=== PATIENT | male | born 1955 | race Caucasian/White ===

== ENCOUNTER 2022-01-16 07:20 | Inpatient (IN) ==
[2022-01-16] MEDS ORDERED: IOPAMIDOL 100 ML BOTTLE IV ONE (07:21)
[2022-01-16 07:52] LABS: POC Calcium, Ionized 1.14 (1.16-1.32); POC Creatinine 0.8 (0.6-1.2); POC Potassium 3.4 (3.3-5.1)
[2022-01-16] MEDS ORDERED: 0.9 % SODIUM CHLORIDE 1,000 ML IV ONE (08:02)
[2022-01-16 08:31] LABS: Basophils # (Auto) 0.07 K/mcL (0.00-0.30); Basophils % (Auto) 0.4 % (0.0-2.0); Eosinophils # (Auto) 0 K/mcL (0.00-0.70); Eosinophils % (Auto) 0 % (0.0-7.0); Hematocrit 50.2 % (40.1-51.0); Hemoglobin 18.1 g/dL (13.7-17.5); Lymphocytes # (Auto) 1.67 K/mcL (1.50-4.80); Mean Cell Volume 94.2 fL (80.0-100.0); Mean Corpuscular HGB Conc 36.1 g/dL (31.0-36.0); Mean Platelet Volume 9.7 fL (7.4-10.4); Monocytes # (Auto) 2.03 K/mcL (0.10-0.90); Monocytes % (Auto) 10.9 % (1.0-12.0); Neutrophils % (Auto) 78.5 % (38.0-78.0); Platelet Count 197 K/mcL (140-440); RBC 5.33 M/mcL (4.63-6.08); Red Cell Distribution Width 13.4 % (11.5-14.5); WBC 18.6 K/mcL (4.5-11.0)
[2022-01-16 08:47] LABS: ALT/SGPT 69 U/L (<40); AST/SGOT 109 U/L (<40); Albumin 3.8 gm/dL (3.2-5.2); Albumin/Globulin Ratio 1.3 (1.0-2.3); Alkaline Phosphatase 167 U/L (39-117); Blood Urea Nitrogen 7 mg/dL (8-23); Calcium 8.9 mg/dL (8.6-10.4); Carbon Dioxide 21 mmol/L (22-30); Chloride 98 mmol/L (96-108); Glomerular Filtration Rate 87; Glucose 150 mg/dL (70-105)
--- NOTE | 2022-01-16 09:08 | XRay Report ---
INDICATION: Abdominal pain TECHNIQUE: PA and lateral upright chest x-ray COMPARISON: Previous chest x-ray dated 09/28/2021 FINDINGS: Lungs: Mild parenchymal density in both lower lobes. Scan demonstrates bilateral lower lobe atelectasis. Heart, vascular: No significant cardiomegaly. Pulmonary vascularity is normal. No pulmonary edema or pulmonary congestion Mediastinum, francie: No mediastinal widening. No hilar mass Pleura:No pleural fluid. No pleural-based mass or calcification Thoracic spine, ribs: No thoracic compression fracture. Ribs are negative. No fracture. No lytic lesion IMPRESSION: 1. Bilateral lower lobe pulmonary parenchymal density consistent with atelectasis 2. Otherwise negative chest x-ray. Interpreted and Authenticated by: Milton Bourne 01/16/22
--- NOTE | 2022-01-16 09:27 | Cat Scan Report ---
INDICATION: Abdominal pain COMPARISON: None. TECHNIQUE: Axial images were obtained through the abdomen and pelvis. Sagittally and coronally reformatted images. 80 mL Isovue 370 injected intravenously. Oral contrast material was not administered FINDINGS: Lung bases:Lung bases are abnormal. There are linear densities in both lower lobes consistent with atelectasis. No parenchymal mass. There is no pleural fluid or pericardial fluid. Liver:No focal intrahepatic mass. No focal abnormality. No intrahepatic abscess. Liver contour is smooth Gallbladder, bilary:Gallbladder is mildly enlarged. There is a 2.1 cm gallstone. There are also densities in the inferior gallbladder consistent with smaller stones. There is gallbladder wall thickening and extensive pericholecystic fluid. Appearance is consistent with cholecystitis. There are probably areas of gallbladder wall defect is since consistent with gangrenous cholecystitis. No walled off fluid. No evidence for abscess. Pericholecystic inflammatory change extends inferiorly to the hepatic flexure of the colon with pericolonic inflammatory change. There are colonic diverticula. Findings are most consistent with cholecystitis and secondary pericolonic inflammatory change rather than primary colonic diverticulitis and involvement of the gallbladder. No intrahepatic bile duct dilatation. Common bile duct is not well demonstrated. Spleen:No splenomegaly. Normal enhancement of splenic and portal veins. Pancreas:No pancreatic mass. No peripancreatic abnormality Adrenal glands:Negative Kidneys,ureters,bladder:No solid renal mass. No hydronephrosis. No obstructing or nonobstructing calculi. No hydroureter. No ureteral calculus. No bladder stone. No detectable bladder mass. Gastrointestinal:No detectable colonic mass. Prominent diverticulosis without diverticulitis. There are diverticula in the hepatic flexure of the colon. There is extensive pericolonic inflammatory change but this is probably secondary to adjacent cholecystitis rather than diverticulitis. There is no discrete diverticular abscess Negative small bowel. No mechanical small bowel obstruction. No bowel wall thickening. No focal abnormality. Negative stomach and duodenum. No focal abnormality. Appendix: The appendix is negative Vascular:Negative abdominal aorta. Superior mesenteric artery and celiac trunk are normal. Normal opacification of the inferior mesenteric artery. Incidental note is made of a retroaortic left renal vein Lymphatic:No retroperitoneal or mesenteric adenopathy Mesentery, peritoneum: Small amount of free fluid within the pelvis. Reproductive:No significant prostatic enlargement Musculoskeletal:Degenerative disc disease at L3-4 and L4-5. No lumbar compression fractures. Sacrum and pelvis are negative. Hips are negative No abdominal wall or inguinal hernia IMPRESSION: 1. Cholelithiasis 2. Extensive pericholecystic fluid consistent with cholecystitis. Gallbladder wall dehiscence and gangrenous cholecystitis are possible. 3. Prominent inflammatory change around the hepatic flexure of the colon. There is diverticulosis but the pericolonic inflammatory changes considered secondary to cholecystitis rather than primary diverticulitis 4. Mild free pelvic fluid. No pelvic abscess 5. Degenerative disc disease 6. Bilateral lower lobe atelectasis The exam was performed using radiation dose optimization techniques including, but not limited to, automated exposure control, adjustment of the mA and/or kV according to patient size and use of iterative reconstruction technique. Interpreted and Authenticated by: Milton Bourne 01/16/22
--- NOTE | 2022-01-16 09:29 | Emergency Department Note ---
Abdominal Pain HPI General Chief Complaint: Abdominal Pain Stated Complaint: abdominal pain Time Seen by Provider: 01/16/22 07:54 Source: patient Mode of arrival: ambulatory Limitations: no limitations History of Present Illness HPI Narrative: 66-year-old male with past medical history of psoriasis, asthma, alcohol abuse presents with dental intermittent severe 8/10 abdominal pain since yesterday associated with nausea. Patient has no headache, dizziness, chest pain, shortness of breath, vomiting/constipation/diarrhea, fever or chills. Related Data Home Medications Medication Instructions Recorded Confirmed multivitamin 1 tab PO QDAY 03/07/15 01/16/22 naproxen sodium 220 mg tablet 220 mg PO QDAY PRN Pain 08/14/21 01/16/22 (Aleve) Allergies Allergy/AdvReac Type Severity Reaction Status Date / Time No Known Drug Allergies Allergy Verified 01/16/22 07:31 Review of Systems ROS ROS Narrative: Narrative: All systems ED: reviewed and negative except as stated. Constitutional: Reports fever; Denies weakness Cardiovascular: Reports as per HPI; Denies chest pain Respiratory: Reports as per HPI; Denies wheezes Gastrointestinal: Reports as per HPI, abdominal pain and nausea; Denies vomiting or diarrhea PFSH Narrative Patient History Narrative: Narrative: Medical/Surgical/Family History All Active Problems (Updated 01/16/22 @ 11:06 by Galen Miller MD) Diverticulosis (Acute) Acute gangrenous cholecystitis (Acute) Encounter for screening colonoscopy for [id number] patient (Acute) Rib pain on right side (Chronic) Hyperlipidemia (Chronic) Abnormal bilirubin test (Chronic) Paresthesia of left foot (Chronic) Essential hypertension (Chronic) Alcohol abuse (Chronic) Closed fracture of right wrist (Chronic) Tinea corporis (Chronic) Sciatica (Chronic) Psoriasis (Chronic) Asthma (Chronic) Medical History Abnormal bilirubin test Alcohol abuse Asthma Closed fracture of right wrist Essential hypertension Hyperlipidemia Paresthesia of left foot Psoriasis Rib pain on right side Sciatica Tinea corporis Family History Mother , at 80y Essential hypertension Father , at 82y Acute myocardial infarction Social History Smoking Status: Former smoker Alcohol Intake Frequency: 2+ drinks per day Substance Use: does not use Exam Narrative Narrative: Narrative: General Limitations: no limitations General appearance: Present alert and in no apparent distress Eye Eye: Present normal appearance Chest Chest: Present normal inspection Respiratory Respiratory: Present normal lung sounds bilaterally Cardiovascular Cardiovascular: Present regular rate, normal rhythm and normal heart sounds Adbominal Abdominal: Present tenderness, guarding, rebound and other (+ tenderness RUQ, Mid abdomen with guarding and rebound tenderness) Extremities Extremities: Absent pedal edema, cyanosis or clubbing Neurological Neurological: Present alert and oriented X3 Psychiatric Psychiatric: Present normal affect and normal mood Course Course Course Narrative: Labs including CBC, CMP, troponin, UA were ordered. CT scan of abdomen with contrast was ordered. Follow-up: Patient has a high WBC count 18.6 with left shift, he has increased LFTs total bilirubin 2, ALT 109, AST 69, alkaline phosphatase 117. His sodium is 132. Follow-up: CT scan of abdomen with contrast is consistent with gangrenous cholecystitis. Discussed the findings with surgical consult Dr. Miller. We will admit the patient to the hospital here and Dr. Miller will see him in the hospital jorge. We will start patient on the Zosyn IV antibiotic. Vital Signs Vital signs: Vital Signs Temperature 100.0 F H 01/16/22 07:28 Pulse Rate 112 H 01/16/22 07:28 Respiratory Rate 18 01/16/22 07:28 Blood Pressure 148/88 01/16/22 07:28 Pulse Oximetry (%) 94 01/16/22 07:28 Oxygen Delivery Method 01/16/22 07:28 Temperature 100.2 F H 01/16/22 19:42 Pulse Rate 99 H 01/16/22 19:14 Respiratory Rate 20 01/16/22 19:14 Blood Pressure 146/91 01/16/22 19:14 Pulse Oximetry (%) 90 01/16/22 19:14 Oxygen Delivery Method 01/16/22 19:14 [facility] Narrative Medical decision making narrative: Narrative: Lab Data Result diagrams: 01/16/22 07:50 01/16/22 07:49 Labs: Lab Results 01/16/22 01/16/22 01/16/22 Range/Units 07:48 07:49 07:50 WBC 18.6 H (4.5-11.0) K/mcL RBC 5.33 (4.63-6.08) M/mcL Hgb 18.1 H (13.7-17.5) g/dL Hct 50.2 (40.1-51.0) % POC Hct 55.0 (41-55) MCV 94.2 (80.0-100.0) fL MCH 34.0 (26.0-34.0) pg MCHC 36.1 H (31.0-36.0) g/dL RDW 13.4 (11.5-14.5) % Plt Count 197 (140-440) K/mcL MPV 9.7 (7.4-10.4) fL Immature Gran % (Auto) 1.2 H (0.0-0.5) % Neut % (Auto) 78.5 H (38.0-78.0) % Lymph % (Auto) 9.0 L (15.5-49.0) % Dougherty % (Auto) 10.9 (1.0-12.0) % Eos % (Auto) 0 (0.0-7.0) % Baso % (Auto) 0.4 (0.0-2.0) % Lymph # (Auto) 1.67 (1.50-4.80) K/mcL Dougherty # (Auto) 2.03 H (0.10-0.90) K/mcL Eos # (Auto) 0 (0.00-0.70) K/mcL Baso # (Auto) 0.07 (0.00-0.30) K/mcL Immature Gran # 0.22 H (0.00-0.05) K/mcl Absolute Neutrophils 14.84 H (1.80-8.00) K/mcL POC VBG pH (7.32-7.42) POC VBG pCO2 at Temp (41-51) POC VBG pO2 (25-40) POC VBG HCO3 (24-28) POC VBG Total CO2 (25-29) POC Venous O2 Sat (40-70) POC VBG Base Excess (-2-2) POC Sodium 134 (133-145) Sodium 132 L (133-145) mmol/L POC Potassium 3.4 (3.3-5.1) Potassium 3.3 (3.3-5.1) mmol/L POC Chloride 98 (96-108) Chloride 98 (96-108) mmol/L Carbon Dioxide 21 L (22-30) mmol/L POC Total CO2 21.0 L (22-30) Anion Gap 13.0 (8.0-16.0) POC BUN 10 (6-20) BUN 7 L (8-23) mg/dL Creatinine 0.9 (0.7-1.2) mg/dL POC Creatinine 0.8 (0.6-1.2) GFR Calculation 87 Glucose 150 H (70-105) mg/dL POC Glucose 154 H (70-105) POC Venous Lactate (0.5-2) Calcium 8.9 (8.6-10.4) mg/dL POC WB Ioniz Calcium 1.14 L (1.16-1.32) Total Bilirubin 2.0 H (0.1-1.0) mg/dL AST 109 H (<40) U/L ALT 69 H (<40) U/L Alkaline Phosphatase 167 H (39-117) U/L Total Protein 6.8 (5.9-8.4) gm/dL Albumin 3.8 (3.2-5.2) gm/dL Globulin 3.0 (2.2-3.7) gm/dL Albumin/Globulin Ratio 1.3 (1.0-2.3) Urine Color Urine Appearance (Clear) Urine pH (5.0-9.0) Ur Specific [place] (1.000-1.035) Urine Protein (Negative) mg/dL Urine Glucose (UA) (Negative) mg/dL Urine Ketones (Negative) mg/dL Urine Occult Blood (Negative) mg/dL Urine Nitrate (Negative) Urine Bilirubin (Negative) mg/dL Urine Urobilinogen mg/dL Ur Leukocyte Esterase (Negative) /uL Urine RBC (0-3) /hpf Urine WBC (0-4) /hpf Ur Squamous Epith Cells (0-4) /hpf Urine Bacteria (0) /hpf Urine Mucus (None) /hpf Ur Culture Indicated? 01/16/22 01/16/22 Range/Units 08:55 09:23 WBC (4.5-11.0) K/mcL RBC (4.63-6.08) M/mcL Hgb (13.7-17.5) g/dL Hct (40.1-51.0) % POC Hct (41-55) MCV (80.0-100.0) fL MCH (26.0-34.0) pg MCHC (31.0-36.0) g/dL RDW (11.5-14.5) % Plt Count (140-440) K/mcL MPV (7.4-10.4) fL Immature Gran % (Auto) (0.0-0.5) % Neut % (Auto) (38.0-78.0) % Lymph % (Auto) (15.5-49.0) % Dougherty % (Auto) (1.0-12.0) % Eos % (Auto) (0.0-7.0) % Baso % (Auto) (0.0-2.0) % Lymph # (Auto) (1.50-4.80) K/mcL Dougherty # (Auto) (0.10-0.90) K/mcL Eos # (Auto) (0.00-0.70) K/mcL Baso # (Auto) (0.00-0.30) K/mcL Immature Gran # (0.00-0.05) K/mcl Absolute Neutrophils (1.80-8.00) K/mcL POC VBG pH 7.52 H (7.32-7.42) POC VBG pCO2 at Temp 28.0 L (41-51) POC VBG pO2 30 (25-40) POC VBG HCO3 23.1 L (24-28) POC VBG Total CO2 24.0 L (25-29) POC Venous O2 Sat 66.0 (40-70) POC VBG Base Excess 0 (-2-2) POC Sodium (133-145) Sodium (133-145) mmol/L POC Potassium (3.3-5.1) Potassium (3.3-5.1) mmol/L POC Chloride (96-108) Chloride (96-108) mmol/L Carbon Dioxide (22-30) mmol/L POC Total CO2 (22-30) Anion Gap (8.0-16.0) POC BUN (6-20) BUN (8-23) mg/dL Creatinine (0.7-1.2) mg/dL POC Creatinine (0.6-1.2) GFR Calculation Glucose (70-105) mg/dL POC Glucose (70-105) POC Venous Lactate 2.6 H (0.5-2) Calcium (8.6-10.4) mg/dL POC WB Ioniz Calcium (1.16-1.32) Total Bilirubin (0.1-1.0) mg/dL AST (<40) U/L ALT (<40) U/L Alkaline Phosphatase (39-117) U/L Total Protein (5.9-8.4) gm/dL Albumin (3.2-5.2) gm/dL Globulin (2.2-3.7) gm/dL Albumin/Globulin Ratio (1.0-2.3) Urine Color Cristina Urine Appearance Clear (Clear) Urine pH 6.0 (5.0-9.0) Ur Specific [place] 1.029 (1.000-1.035) Urine Protein 30 A (Negative) mg/dL Urine Glucose (UA) Negative (Negative) mg/dL Urine Ketones Negative (Negative) mg/dL Urine Occult Blood 0.03 (Negative) mg/dL Urine Nitrate Negative (Negative) Urine Bilirubin Negative (Negative) mg/dL Urine Urobilinogen 4.0 A mg/dL Ur Leukocyte Esterase Negative (Negative) /uL Urine RBC 2 (0-3) /hpf Urine WBC 4 (0-4) /hpf Ur Squamous Epith Cells 0 (0-4) /hpf Urine Bacteria None (0) /hpf Urine Mucus Few A (None) /hpf Ur Culture Indicated? No ED POC Tests ED POC Tests: ETELVINA - SARS Antigen Negative Discharge Plan Patient/Caregiver Discharge Instructions Pt seen by MECHANICAL TECHNICIAN/PA only: No Clinical Impression: Acute gangrenous cholecystitis Patient Disposition: Xfer As Inpt ([facility]) Condition: Fair Discharge Date/Time: 01/16/22 11:28
[2022-01-16] MEDS ORDERED: PIPERACILLIN SODIUM/TAZOBACTAM 3.375 GM in DEXTROSE 5% IN WATER 50 ML IV ONE (09:47)
[2022-01-16 10:14] LABS: Appearance,Urine CLEAR (Clear); Bilirubin,Urine Negative (Negative); Color,Urine AMBER; Culture Indicated,Urine No; Glucose,Urine (UA) Negative (Negative); Ketones,Urine Negative (Negative); Leukocyte Esterase,Urine Negative /uL (Negative); Mucus,Urine FEW /hpf; Nitrate,Urine Negative (Negative); Protein,Urine 30 mg/dL (Negative); Specific Gravity,Urine 1.029 (1.000-1.035); Urine Blood 0.03 mg/dL (Negative); Urine RBC 2 /hpf (0-3); Urine Squamous Epithelial Cell 0 /hpf (0-4); Urine WBC 4 /hpf (0-4)
[2022-01-16] MEDS ORDERED: ONDANSETRON 4 MG/2 ML VIAL IV PRN ×2 (11:07→11:15)
--- NOTE | 2022-01-16 11:07 | General Surg History&Physical ---
HPI History of Present Illness Patient information: Note initiated : 01/16/22 at 11:03 am Service Date, if different from initiated Date: [] Patient: Santo Lopez a 66 y/o M admitted on for abdominal pain. Chief Complaint: [] Chief complaint: Abdominal pain History of present illness: Mr. Lopez is a 66 year old M without prior significant past medical history who presents with 1-1/2-day history of epigastric and right upper quadrant abdominal pain. Patient denies any similar sort of pains in the past, he denies any epi gastric or right upper quadrant pain with fatty and greasy foods. He reports that yesterday morning he woke up around 3 or 4:00 in the morning with significant right upper quadrant abdominal pain and is progressed throughout the last several days. He denies any fevers chills nausea or vomiting. He denies any diarrhea or constipation. Several months ago he had a colonoscopy which was negative except for 2 adenomas which were removed and extensive diverticulosis. He presented to the emergency room where work-up was significant for right upper quadrant inflammation either from cholecystitis or diverticulitis, however radiology favors cholecystitis with possible gangrenous cholecystitis. He has elevated white blood cell count of 18,000 and elevated liver function test. Review of Systems Review of systems: All systems are reviewed, negative other than above PFSH PFSH All Active Problems (Updated 01/16/22 @ 11:06 by Galen Miller MD) Diverticulosis (Acute) Acute gangrenous cholecystitis (Acute) Encounter for screening colonoscopy for [id number] patient (Acute) Rib pain on right side (Chronic) Hyperlipidemia (Chronic) Abnormal bilirubin test (Chronic) Paresthesia of left foot (Chronic) Essential hypertension (Chronic) Alcohol abuse (Chronic) Closed fracture of right wrist (Chronic) Tinea corporis (Chronic) Sciatica (Chronic) Psoriasis (Chronic) Asthma (Chronic) Medical History Abnormal bilirubin test Alcohol abuse Asthma Closed fracture of right wrist Essential hypertension Hyperlipidemia Paresthesia of left foot Psoriasis Rib pain on right side Sciatica Tinea corporis Family History Mother , at 80y Essential hypertension Father , at 82y Acute myocardial infarction Social History marital status: education level: high school occupational status: retired other: 2 Children smoking status: Former smoker pack-years: 43 alcohol intake frequency: 2+ drinks per day counseling given: Yes counseling provided: provider counseling substance use type: does not use MEDS/ALLERGIES Home Medications and Allergies Home Medications Medication Instructions Recorded Confirmed Type multivitamin 1 tab PO QDAY tab 03/07/15 01/16/22 History naproxen sodium 220 mg tablet 220 mg PO QDAY PRN tab 08/14/21 01/16/22 History (Aleve) Allergies Allergy/AdvReac Type Severity Reaction Status Date / Time No Known Drug Allergies Allergy Verified 01/16/22 07:31 Physical Examination Vital Signs Vital signs: Temp Pulse Resp BP Pulse Ox 100.0 F H 95 H 18 165/82 95 01/16/22 07:28 01/16/22 10:46 01/16/22 07:28 01/16/22 10:46 01/16/22 10:46 General physical appearance General physical exam: well developed, well nourished and no distress Eyes Eye exam: PERRL and normal ocular movement ENT ENT exam: normal pinna, normal nares, normal mucosa, no hearing loss and no congestion Head Head exam IM: Present atraumatic and normocephalic Neck Neck exam: no masses, no bruits, trachea midline, no lymphadenopathy and no venous distension Cardiovascular Cardiovascular exam IM: Present normal rate and rhythm Respiratory Respiratory exam: normal expansion, normal respiratory effort, clear to percussion and clear to auscultation Abdomen Abdomen: Present soft, tender (RUQ) and bowel sounds; Absent guarding, rigid or rebound Hernia: Present none Genitourinary Genitourinary (Male): Present normal penis with no external lesions Rectum Rectum: Present normal sphincter tone, no hemorrhoids, no tenderness, no masses and no bleeding Integumentary Integumentary: Present no rash, no growths and no abnormal pigmentation Neurologic Neurologic: Present normal coordination and normal sensation Musculoskeletal Musculoskeletal: Present normal gait and normal posture Psychiatric Psychiatric: Present oriented to time, oriented to person, oriented to place, speech is normal and memory intact Results Labs Result diagrams: 01/16/22 07:50 01/16/22 07:49 Labs: Abnormal lab results 01/16/22 01/16/22 01/16/22 Range/Units 07:48 07:49 07:50 WBC 18.6 H (4.5-11.0) K/mcL Hgb 18.1 H (13.7-17.5) g/dL MCHC 36.1 H (31.0-36.0) g/dL Immature Gran % (Auto) 1.2 H (0.0-0.5) % Neut % (Auto) 78.5 H (38.0-78.0) % Lymph % (Auto) 9.0 L (15.5-49.0) % [place] # (Auto) 2.03 H (0.10-0.90) K/mcL Immature Gran # 0.22 H (0.00-0.05) K/mcl Absolute Neutrophils 14.84 H (1.80-8.00) K/mcL POC VBG pH (7.32-7.42) POC VBG pCO2 at Temp (41-51) POC VBG HCO3 (24-28) POC VBG Total CO2 (25-29) Sodium 132 L (133-145) mmol/L Carbon Dioxide 21 L (22-30) mmol/L POC Total CO2 21.0 L (22-30) BUN 7 L (8-23) mg/dL Glucose 150 H (70-105) mg/dL POC Glucose 154 H (70-105) POC Venous Lactate (0.5-2) POC WB Ioniz Calcium 1.14 L (1.16-1.32) Total Bilirubin 2.0 H (0.1-1.0) mg/dL AST 109 H (<40) U/L ALT 69 H (<40) U/L Alkaline Phosphatase 167 H (39-117) U/L Urine Protein (Negative) mg/dL Urine Urobilinogen mg/dL Urine Mucus (None) /hpf 01/16/22 01/16/22 Range/Units 08:55 09:23 WBC (4.5-11.0) K/mcL Hgb (13.7-17.5) g/dL MCHC (31.0-36.0) g/dL Immature Gran % (Auto) (0.0-0.5) % Neut % (Auto) (38.0-78.0) % Lymph % (Auto) (15.5-49.0) % [place] # (Auto) (0.10-0.90) K/mcL Immature Gran # (0.00-0.05) K/mcl Absolute Neutrophils (1.80-8.00) K/mcL POC VBG pH 7.52 H (7.32-7.42) POC VBG pCO2 at Temp 28.0 L (41-51) POC VBG HCO3 23.1 L (24-28) POC VBG Total CO2 24.0 L (25-29) Sodium (133-145) mmol/L Carbon Dioxide (22-30) mmol/L POC Total CO2 (22-30) BUN (8-23) mg/dL Glucose (70-105) mg/dL POC Glucose (70-105) POC Venous Lactate 2.6 H (0.5-2) POC WB Ioniz Calcium (1.16-1.32) Total Bilirubin (0.1-1.0) mg/dL AST (<40) U/L ALT (<40) U/L Alkaline Phosphatase (39-117) U/L Urine Protein 30 A (Negative) mg/dL Urine Urobilinogen 4.0 A mg/dL Urine Mucus Few A (None) /hpf Diabetes panel 01/16/22 Range/Units 07:49 Sodium 132 L (133-145) mmol/L Potassium 3.3 (3.3-5.1) mmol/L Chloride 98 (96-108) mmol/L Carbon Dioxide 21 L (22-30) mmol/L BUN 7 L (8-23) mg/dL Creatinine 0.9 (0.7-1.2) mg/dL Glucose 150 H (70-105) mg/dL Calcium 8.9 (8.6-10.4) mg/dL AST 109 H (<40) U/L ALT 69 H (<40) U/L Alkaline Phosphatase 167 H (39-117) U/L Total Protein 6.8 (5.9-8.4) gm/dL Albumin 3.8 (3.2-5.2) gm/dL Calcium panel 01/16/22 Range/Units 07:49 Calcium 8.9 (8.6-10.4) mg/dL Albumin 3.8 (3.2-5.2) gm/dL Pituitary panel 01/16/22 Range/Units 07:49 Sodium 132 L (133-145) mmol/L Potassium 3.3 (3.3-5.1) mmol/L Chloride 98 (96-108) mmol/L Carbon Dioxide 21 L (22-30) mmol/L BUN 7 L (8-23) mg/dL Creatinine 0.9 (0.7-1.2) mg/dL Glucose 150 H (70-105) mg/dL Calcium 8.9 (8.6-10.4) mg/dL Adrenal panel 01/16/22 Range/Units 07:49 Sodium 132 L (133-145) mmol/L Potassium 3.3 (3.3-5.1) mmol/L Chloride 98 (96-108) mmol/L Carbon Dioxide 21 L (22-30) mmol/L BUN 7 L (8-23) mg/dL Creatinine 0.9 (0.7-1.2) mg/dL Glucose 150 H (70-105) mg/dL Calcium 8.9 (8.6-10.4) mg/dL Total Bilirubin 2.0 H (0.1-1.0) mg/dL AST 109 H (<40) U/L ALT 69 H (<40) U/L Alkaline Phosphatase 167 H (39-117) U/L Total Protein 6.8 (5.9-8.4) gm/dL Albumin 3.8 (3.2-5.2) gm/dL All other labs normal. Imaging CT scan - abdomen: image reviewed A/P Assessment and plan (1) Acute gangrenous cholecystitis: Status: Acute (2) Diverticulosis: Status: Acute Narrative A/P Narrative: This is a pleasant 66-year-old gentleman who presents with signs and symptoms consistent with acute cholecystitis, patient also has elevated LFTs concerning for choledocholithiasis and inflammation in the right upper quadrant excessive of history and physical exam. Plan: Admit to the hospital, n.p.o., IV antibiotics. MRCP to further evaluate biliary system. Further treatment based on MRCP. Time Spent With Patient Time: Total time spent is greater than 50% in coordination of care (as documented) at patient's floor/unit and/or counseling patient:
[2022-01-16] MEDS ORDERED: HYDROmorphone 0.5 MG/0.5 ML SYRINGE IV PRN (11:15)
[2022-01-16] MEDS ORDERED: 0.9 % SODIUM CHLORIDE 1,000 ML IV SCH (11:15)
--- NOTE | 2022-01-16 11:27 | Internal Medicine Consult Note ---
HPI Data of Consult Consult date: 01/16/22 Primary Care Provider: Cirilo East PA-C Consult Narrative Patient Information: Note initiated : 01/16/22 at 11:24 am Service Date, if different from initiated Date: [] Patient: Santo Lopez 66 y/o M admitted on for abdominal pain. Chief Complaint: [] cc:: CC: Patient presents the ED with significant abdominal pain throughout but more severe right upper quadrant nonradiating. Complains of headache some chills but no fevers. No chest pain shortness of breath. No nausea vomiting He is found to to be with labile vital signs although he is mildly tachycardic low 90s. Had a leukocytosis and a lactate level 2.6. Mildly elevated liver enzymes and bilirubin. Patient had a CT of the abdomen pelvis which showed cholelithiasis and cholecystitis concern for gangrenous cholecystitis. Paul was contacted. She does drink alcohol daily 3-4 drinks per day. Did get Zosyn in the ED. Review of Systems: Pertinent positives as above. Denies fever/nausea/vomiting/chest paiin/cough/dyspnea/diarrhea. Otherwise see above. PFSH PFSH All Active Problems (Updated 01/16/22 @ 11:06 by Galen Miller MD) Diverticulosis (Acute) Acute gangrenous cholecystitis (Acute) Encounter for screening colonoscopy for [id number] patient (Acute) Rib pain on right side (Chronic) Hyperlipidemia (Chronic) Abnormal bilirubin test (Chronic) Paresthesia of left foot (Chronic) Essential hypertension (Chronic) Alcohol abuse (Chronic) Closed fracture of right wrist (Chronic) Tinea corporis (Chronic) Sciatica (Chronic) Psoriasis (Chronic) Asthma (Chronic) Medical History Abnormal bilirubin test Alcohol abuse Asthma Closed fracture of right wrist Essential hypertension Hyperlipidemia Paresthesia of left foot Psoriasis Rib pain on right side Sciatica Tinea corporis Family History Mother , at 80y Essential hypertension Father , at 82y Acute myocardial infarction Social History marital status: education level: high school occupational status: retired other: 2 Children smoking status: Former smoker pack-years: 43 alcohol intake frequency: 2+ drinks per day counseling given: Yes counseling provided: provider counseling substance use type: does not use MEDS/ALLERGIES Home Medications and Allergies Home Medications Medication Instructions Recorded Confirmed Type multivitamin 1 tab PO QDAY tab 03/07/15 01/16/22 History naproxen sodium 220 mg tablet 220 mg PO QDAY PRN tab 08/14/21 01/16/22 History (Aleve) Allergies Allergy/AdvReac Type Severity Reaction Status Date / Time No Known Drug Allergies Allergy Verified 01/16/22 07:31 EXAM Constitutional Vitals: Temp Pulse Resp BP Pulse Ox 100.0 F H 96 H 18 158/95 94 01/16/22 07:28 01/16/22 11:17 01/16/22 07:28 01/16/22 11:17 01/16/22 11:17 Exam: General: Alert, Awake, No acute Distress Eyes/N/T: EOMI, PERRL, Head/Neck: neck supple, normocephalic atraumatic CV: RRR, No murmurs, normal s1/s2 Pulm: Clear b/l, no wheezing/rhonchi/rales Abd: Distended but soft, TTP RUQ, +BS x4 Ext: no clubbing/cyanosis, trace b/l LE edema Neuro: Alert, no focal deficits, moves all extremities, CN 2-12 grossly intact, symmetrical strength b/l upper/lower, sensations intact b/l upper/lower Skin: warm/dry DATA Data Completed and Pending Labs: Labs from last 24 hours 01/16/22 01/16/22 01/16/22 09:23 08:55 07:50 WBC 18.6 H RBC 5.33 Hgb 18.1 H Hct 50.2 POC Hct MCV 94.2 MCH 34.0 MCHC 36.1 H RDW 13.4 Plt Count 197 MPV 9.7 Immature Gran % (Auto) 1.2 H Neut % (Auto) 78.5 H Lymph % (Auto) 9.0 L Kings % (Auto) 10.9 Eos % (Auto) 0 Baso % (Auto) 0.4 Lymph # (Auto) 1.67 Kings # (Auto) 2.03 H Eos # (Auto) 0 Baso # (Auto) 0.07 Immature Gran # 0.22 H Absolute Neutrophils 14.84 H POC VBG pH 7.52 H POC VBG pCO2 at Temp 28.0 L POC VBG pO2 30 POC VBG HCO3 23.1 L POC VBG Total CO2 24.0 L POC Venous O2 Sat 66.0 POC VBG Base Excess 0 POC Sodium Sodium POC Potassium Potassium POC Chloride Chloride Carbon Dioxide POC Total CO2 Anion Gap POC BUN BUN Creatinine POC Creatinine GFR Calculation Glucose POC Glucose POC Venous Lactate 2.6 H Calcium POC WB Ioniz Calcium Total Bilirubin AST ALT Alkaline Phosphatase Total Protein Albumin Globulin Albumin/Globulin Ratio Urine Color Cristina Urine Appearance Clear Urine pH 6.0 Ur Specific Portal 1.029 Urine Protein 30 A Urine Glucose (UA) Negative Urine Ketones Negative Urine Occult Blood 0.03 Urine Nitrate Negative Urine Bilirubin Negative Urine Urobilinogen 4.0 A Ur Leukocyte Esterase Negative Urine RBC 2 Urine WBC 4 Ur Squamous Epith Cells 0 Urine Bacteria None Urine Mucus Few A Ur Culture Indicated? No 01/16/22 01/16/22 07:49 07:48 WBC RBC Hgb Hct POC Hct 55.0 MCV MCH MCHC RDW Plt Count MPV Immature Gran % (Auto) Neut % (Auto) Lymph % (Auto) Kings % (Auto) Eos % (Auto) Baso % (Auto) Lymph # (Auto) Kings # (Auto) Eos # (Auto) Baso # (Auto) Immature Gran # Absolute Neutrophils POC VBG pH POC VBG pCO2 at Temp POC VBG pO2 POC VBG HCO3 POC VBG Total CO2 POC Venous O2 Sat POC VBG Base Excess POC Sodium 134 Sodium 132 L POC Potassium 3.4 Potassium 3.3 POC Chloride 98 Chloride 98 Carbon Dioxide 21 L POC Total CO2 21.0 L Anion Gap 13.0 POC BUN 10 BUN 7 L Creatinine 0.9 POC Creatinine 0.8 GFR Calculation 87 Glucose 150 H POC Glucose 154 H POC Venous Lactate Calcium 8.9 POC WB Ioniz Calcium 1.14 L Total Bilirubin 2.0 H AST 109 H ALT 69 H Alkaline Phosphatase 167 H Total Protein 6.8 Albumin 3.8 Globulin 3.0 Albumin/Globulin Ratio 1.3 Urine Color Urine Appearance Urine pH Ur Specific Portal Urine Protein Urine Glucose (UA) Urine Ketones Urine Occult Blood Urine Nitrate Urine Bilirubin Urine Urobilinogen Ur Leukocyte Esterase Urine RBC Urine WBC Ur Squamous Epith Cells Urine Bacteria Urine Mucus Ur Culture Indicated? A/P Narrative A/P Narrative: A/P: *Acute cholecystitis: -Per surgery, on zosyn, npo *Sepsis with Lactic acidosis: *Alcohol use: 3-4 drinks of whiskey per day -ciwa protocol, vitamins, prn benzo *ppa: SCD and post-op per ortho Time Spent With Patient Time: Total time spent is greater than 50% in coordination of care (as documented) at patient's floor/unit and/or counseling patient:
[2022-01-16] MEDS ORDERED: SENNOSIDES 1 TABLET PO PRN (11:39)
[2022-01-16] MEDS ORDERED: POLYETHYLENE GLYCOL 3350 17 GM PACKET PO PRN (11:39)
[2022-01-16] MEDS ORDERED: MAGNESIUM SULFATE 2 GM/50 ML BAG IV PRN (11:39)
[2022-01-16] MEDS ORDERED: POTASSIUM CHLORIDE 40 MEQ in DEXTROSE 5% IN WATER 500 ML IV PRN (11:39)
[2022-01-16] MEDS ORDERED: POTASSIUM CHLORIDE 20 MEQ TABLET PO PRN ×2 (11:39)
[2022-01-16] MEDS ORDERED: IPRATROPIUM/ALBUTEROL 3 ML AMPUL.NEB NEB PRN (11:39)
[2022-01-16] MEDS ORDERED: PIPERACILLIN SODIUM/TAZOBACTAM 4.5 GM in DEXTROSE 5% IN WATER 50 ML IV SCH (12:00)
[2022-01-16] MEDS: DEXTROSE 5%-1/2NS 1,000 ML IV SCH ×2 (13:22→20:09)
[2022-01-16] MEDS: HYDROmorphone 0.5 MG/0.5 ML SYRINGE IV PRN ×2 (14:37→18:41)
--- NOTE | 2022-01-16 18:07 | Discharge Summary ---
Discharge Provider Provider IMPORTANT FOLLOW-UP INFORMATION FOR PCP: Patient information: Note initiated : 01/16/22 at 6:01 pm Service Date, if different from initiated Date: [] Patient: Santo Lopez 66 y/o M admitted on 01/16/22 for abdominal pain. Chief Complaint: [] Date of admission: 01/16/22 11:27 Discharge date: 01/16/22 Primary care physician: Cirilo East PA-C Consults: 01/16/22 Consult to Physician [CONS] Stat Comment: Consulting Provider: Aden Sherman Reason For Exam: Physician to Consult Consult to Physician [CONS] Stat Comment: Consulting Provider: Galen Miller Reason For Exam: Physician to Consult COURSE Hospital Course Hospital course: Patient admitted with acute cholecystitis, concerns for gangrenous cholecystitis and choledocholithiasis. MRCP ordered, however, MRI went down and is expected to be down for 1-3 days. concern for choledocholithiasis needs MRI therefore decision was made to transfer patient to facility with MRi and GI. Discharge diagnosis: acute cholecystitis, concern for choledocholithiasis, gangrenous cholecysti Time spent discussing smoking cessation with patient: more than 10 minutes Time Spent with Patient Time attestation: Total time spent providing and/or coordinating discharge services: Time spent: Greater than 30 minutes Physical Examination Vital Signs Vital signs: Temp Pulse Resp BP Pulse Ox 100.8 F H 95 H 20 141/93 95 01/16/22 16:00 01/16/22 16:00 01/16/22 16:00 01/16/22 16:00 01/16/22 16:00 Discharge Plan Patient/Caregiver Discharge Instructions Prescriptions: No Action multivitamin tablet 1 tab PO QDAY 0RF naproxen sodium [Aleve] 220 mg tablet 220 mg PO QDAY PRN (Reason: Pain) 0RF Follow Up Plan Follow up with: Cirilo East PA-C [Primary Care Provider] - Patient Disposition: [facility] Prognosis: Fair Pending Pending Pending: Resuscitation Status Resuscitate (Full Code) Diet NPO Diet (NOW) Start SatJan 16 110 Hydromorphone HCl (Hydromorphone 0.5 Mg/0.5 Ml Syringe) 0.5 mg IV Q2HP PRN; Protocol PRN Reason: Per Pain Protocol Last Admin: 01/16/22 14:37 Dose: 0.5 mg Documented by: MIGUEL Dextrose/Sodium Chloride (Dextrose 5%-1/2ns Iv Solution) 1,000 mls @ 125 mls/hr IV .Q8H BOBY Last Admin: 01/16/22 13:22 Dose: 125 mls/hr Documented by: MIGUEL Piperacillin Sod/Tazobactam (Sod 4.5 gm/ Dextrose) 50 mls @ 100 mls/hr IV Q8H BOBY; Protocol Last Infusion: 01/16/22 15:17 Dose: 0 mls/hr Documented by: Admin: 01/16/22 14:32 Dose: 100 mls/hr Documented by: MIGUEL
[2022-01-16] MEDS ORDERED: DOCUSATE SODIUM 100 MG CAPSULE PO SCH (21:00)
--- NOTE | 2022-01-22 10:44 | EKG ---
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 Measurements Intervals Waterfall Rate: 98 P: 41 IN: 145 QRS: 12 QRSD: 90 T: 17 QT: 346 QTc: 442 Interpretive Statements Sinus rhythm Consider left atrial enlargement Electronically Signed On 01-22-2022 10:44:07 PDT by Milton Moore M.D. /[id number]
== END 2022-01-16 19:54 | disposition short-term general hospital (02) | DRG 446 ==
LOC: MEDSUR 07:20 → ED 07:20 → MEDSUR 11:28
PROVIDERS: ADMIT Surgery; ATTEND Surgery